=== PATIENT | male | born 1995 | race African-American/Black ===

== ENCOUNTER 2021-02-02 14:33 | Emergency (ER) | payer OTHER ==
[2021-02-02 14:48] VITALS: TEMP 98.2; BMI 39.6
[2021-02-02 16:51] VITALS: BP 129/73; PULSE 64
== END 2021-02-02 16:39 | disposition home or self-care (01) ==
LOC: JER 14:33
DX: R00.2 Palpitations (principal)
CPT/HCPCS: 93005; 93010; 99283-25

== ENCOUNTER 2021-05-17 03:54 | Emergency (ER) | payer OTHER ==
[2021-05-17 04:17] VITALS: BP 144/88; TEMP 98.9; BMI 37.3
[2021-05-17 05:11] LABS: BASO % 1.3 % (0-2.0); EOS % 2.4 % (0-4.5); HEMATOCRIT 35.7 % (35.4-49); HEMOGLOBIN 12.1 GM/dL (11.7-16.9); LYMPH % 32.3 % (8-40); MCH 27.1 pg (25.7-33.7); MCHC 33.7 g/dl (32.0-35.9); MEAN CELL VOLUME 80.3 fl (80-96); MEAN PLT VOLUME 8.1 fl (7.5-11.1); MONO % 10.8 % (3.8-10.2); NEUT % 53.2 % (42.8-82.8); PLATELET COUNT 254 10^3/uL (134-434); RBC 4.45 M/mm3 (4.00-5.60); RDW 14.1 % (11.9-15.9); WHITE BLOOD COUNT 4.8 K/mm3 (4.0-10.0)
[2021-05-17 05:33] LABS: BLOOD UREA NITROGEN 16.7 mg/dL (7-18); CALCIUM 8.8 mg/dL (8.5-10.1)
[2021-05-17 05:34] LABS: ALBUMIN 3.5 g/dl (3.4-5.0)
[2021-05-17 05:37] LABS: CREATININE 1.3 mg/dL (0.55-1.3)
[2021-05-17 05:38] LABS: BILIRUBIN,TOTAL 0.2 mg/dL (0.2-1); TOT PROT 6.9 g/dl (6.4-8.2)
[2021-05-17 05:53] LABS: MAGNESIUM 1.8 mg/dL (1.8-2.4)
[2021-05-17 05:55] VITALS: PULSE 85
== END 2021-05-17 05:55 | disposition home or self-care (01) ==
LOC: JER 03:54
DX: R00.2 Palpitations (principal)
CPT/HCPCS: 36415; 80053; 83735; 84443; 84484; 85025; 93005; 93010; 99284-25

== ENCOUNTER 2021-08-12 14:01 | Emergency (ER) | payer OTHER ==
[2021-08-12 14:47] VITALS: BP 145/77; PULSE 83; TEMP 98.2; BMI 40.8
== END 2021-08-12 21:09 | disposition home or self-care (01) ==
LOC: JERFT 14:01
DX: S40.021A Contusion of right upper arm, initial encounter (principal); I82.611 Acute embolism and thrombosis of superficial veins of right upper extremity; Y99.9 Unspecified external cause status
CPT/HCPCS: 93971; 99284-25